=== PATIENT | female | born 1935 | race Caucasian/White ===

== ENCOUNTER 2021-06-20 17:06 | Emergency (ER) | payer OTHER ==
[~2021-06-20] VITALS: Ht 162.6 cm; Wt 77.1 kg
[2021-06-20] MEDS ORDERED: LIDOCAINE 1% (LOCAL ANESTH.) PF 5ml SDV ID ONE (17:30)
[2021-06-20] MEDS ORDERED: NEOMYCIN-BACITRACIN-POLYM UNITDOSE PKG TOP OINT TOP ONE (17:30)
[2021-06-20] MEDS ORDERED: LIDOCAINE 1%HCL (LOCAL ANESTH) 10 ML MDV XX ONE (19:30)
[2021-06-20 20:36] VITALS: BP 161/85
[2021-06-20] MEDS ORDERED: HYDROcodone-ACET 5/325MG TAB PO ONE (20:45)
[2021-06-20] MEDS ORDERED: AZIT1POW PO (20:53)
== END 2021-06-20 20:59 | disposition home or self-care (01) ==
LOC: ER 17:06
DX: S01.81XA Laceration without foreign body of other part of head, initial encounter (principal); S01.511A Laceration without foreign body of lip, initial encounter; S66.912A Strain of unspecified muscle, fascia and tendon at wrist and hand level, left hand, initial encounter; S66.911A Strain of unspecified muscle, fascia and tendon at wrist and hand level, right hand, initial encounter; E11.9 Type 2 diabetes mellitus without complications; F17.210 Nicotine dependence, cigarettes, uncomplicated; Z88.8 Allergy status to other drugs, medicaments and biological substances; W01.0XXA Fall on same level from slipping, tripping and stumbling without subsequent striking against object, initial encounter; Y93.89 Activity, other specified; Y92.89 Other specified places as the place of occurrence of the external cause; Y99.8 Other external cause status
CPT/HCPCS: 12015; 70450; 70486; 71250; 73100; 99284; J2001; 12014

== ENCOUNTER 2022-12-13 12:55 | Inpatient (IN) | payer OTHER ==
[2022-12-13] VITALS (18 sets, daily range): BP systolic 116–193; BP diastolic 53–81; PULSE 49–87; RESP 19–26; TEMP 98.8–99.3; O2SAT 92–100
[~2022-12-13] VITALS: Ht 167.6 cm; Wt 88.5 kg
[~2022-12-13 12:55] MED LIST: AZIT1POW PO
[2022-12-13] MEDS ORDERED: SODIUM CHLORIDE 0.9% 500 ML IVB ONE (13:00)
[2022-12-13 13:42] LABS: Base Excess 8.4 mmol/L (-2.0-2.0)
[2022-12-13 14:31] LABS: Urine Bacteria FEW /hpf (None Seen); Urine Blood Negative /uL (Negative); Urine Clarity HAZY (Clear); Urine Color Yellow (Yellow); Urine Mucus FEW (None Seen); Urine Protein, UAD 1+ (Negative); Urine Specific Gravity 1.025 (1.001-1.035); Urine WBC 3 /hpf (0 - 5)
[2022-12-13 14:49] LABS: Hemoglobin 10.6 g/dL (12.2-16.2)
[2022-12-13 14:49] LABS: Amphetamine Screen, Urine Neg (NEGATIVE); Barbiturate Scree,Urine Neg (NEGATIVE); Benzodiazephine Screen, Urine Pos (NEGATIVE); Cannabinoid Screen, Urine Neg (NEGATIVE); Cocaine Screen, Urine Neg (NEGATIVE); Opiate Scree,Urine Neg (NEGATIVE); Phencyclidine Screen, Urine Neg (NEGATIVE)
[2022-12-13 14:51] LABS: Hematocrit 34.3 % (36.0-46.0); Mean Corpuscular Hemoglobin 30.9 pg (28.0-32.0); Mean Corpuscular Volume 99.7 fL (80.0-100.0); Red Blood Cells 3.44 10^6/uL (4.0-5.20); Red Cell Distribution Width 15.9 % (11.8-14.3); White Blood Cell 6.2 10^3/uL (4.4-10.8)
[2022-12-13 14:54] LABS: Alanine Aminotransferase 82 U/L (7-40); Albumin 3.8 g/dL (3.2-4.8); Alkaline Phosphatase 75 U/L (46-116); Aspartate Aminotransferase 99 U/L (13-40); BUN/Creatinine Ratio 22.6 (10.0-20.0); Bilirubin, Total 0.3 mg/dL (0.2-1.0); Blood Alcohol < 3.0 mg/dL (<10); Blood Urea Nitrogen 21 mg/dL (9-23); Calcium 8.9 mg/dL (8.5-10.1); Chloride 105 mmol/L (98-107); Glucose 172 mg/dL (74-106); Potassium 4.1 mmol/L (3.5-5.1); Sodium 147 mmol/L (136-145); Total Protein 6.4 g/dL (5.7-8.2)
[2022-12-13 14:56] LABS: Anion Gap 1.99999 (5-15)
[2022-12-13 14:58] LABS: Basophils % (manual) 0 (0.0-2.0); Blast Cells 0; Eosinophils % (manual) 0 (0-7); Metamyelocytes % 0; Myelocytes % 0; Promyelocytes % 0; Reactive Lymphocytes 0
[2022-12-13 15:00] LABS: Carbon Dioxide > 40 mmol/L (20-30)
[2022-12-13 15:03] LABS: CRP High Sensitivity 2.03 mg/dL (<1.0)
[2022-12-13 15:05] LABS: INR 1.08 (0.9-1.15); Partial Thromboplastin Time 24.9 SEC (24.5-34.5); Prothrombin Time 11.3 sec (9.3-11.8)
[2022-12-13 15:10] LABS: Magnesium 2.2 mg/dL (1.6-2.6)
[2022-12-13 15:33] LABS: Base Excess 7.8 mmol/L (-2.0-2.0)
[2022-12-13] MEDS ORDERED: NITROGLYCERIN 0.4 MG SL TAB SL PRN (15:45)
[2022-12-13] MEDS ORDERED: MORPHINE SULFATE INJ 2 MG/ml SYRG IV PRN ×2 (15:45)
[2022-12-13] MEDS ORDERED: cefTRIAXone 1GM/50ML D5W 50 ML IV ONE (15:45)
[2022-12-13] MEDS ORDERED: ACETAMINOPHEN 325 MG TAB PO PRN (15:45)
[2022-12-13] MEDS ORDERED: SUCCINYLCHOLINE CHLORIDE 20 MG/ML 10ML VIAL IV ONE ×3 (15:45→18:00)
[2022-12-13] MEDS ORDERED: levoFLOXacin 500MG 100 ML IV ONE (15:45)
[2022-12-13] MEDS ORDERED: ETOMIDATE (2MG/ML) 20ML VIAL IV ONE (15:45)
[2022-12-13] MEDS ORDERED: HYDROcodone-ACET 5/325MG TAB PO PRN (15:45)
[2022-12-13 15:46] LABS: Anisocytosis Slight; Band Neutrophils % (manual) 4; Lymphocytes % (manual) 10 (10.0-50.0); Monocytes % (manual) 8 (0-12); Platelet Estimate Adequate
[2022-12-13] MEDS ORDERED: MIDAZOLAM DRIP 50 mg/50mL 50 ML IV SCH (16:15)
[2022-12-13] MEDS ORDERED: MIDAZOLAM DRIP 50 mg/50mL 50 ML IV ONE (16:15)
[2022-12-13] MEDS: MIDAZOLAM DRIP 50 mg/50mL 50 ML IV SCH ×3 (16:29→23:06)
[2022-12-13] MEDS ORDERED: methylPREDNISolone SOD SUCC 40 MG/ML VL IM ONE (16:30)
[2022-12-13] MEDS: ENOXAPARIN SOD 40 MG/0.4 ML SYRINGE SC SCH (16:50)
[2022-12-13 17:36] LABS: Base Excess 13.6 mmol/L (-2.0-2.0)
[2022-12-13 18:10] LABS: COVID19 ANTIGEN SOFIA FIA NEGATIVE (NEGATIVE); Rapid Influenza A Negative (Negative); Rapid Influenza B Negative (Negative)
[2022-12-13] MEDS ORDERED: PROPOFOL 100 ML IV ONE (18:12)
[2022-12-13] MEDS: PROPOFOL 100 ML IV SCH ×3 (18:15→23:07)
[2022-12-13] MEDS: methylPREDNISolone SOD SUCC 40 MG/ML VL IV SCH (21:55)
[2022-12-13] MEDS: PIPERACILLIN-TAZOB 3.375GM 100 ML IV SCH (21:55)
[2022-12-13] MEDS: hydrALAZINE HCL 20 MG/ML VL IV PRN (22:51)
[2022-12-13] MEDS ORDERED: ATOR20TA50 PO (23:28)
[2022-12-13] MEDS ORDERED: GAB100C PO (23:28)
[2022-12-13] MEDS ORDERED: POTA-228 PO (23:28)
[2022-12-13] MEDS ORDERED: ALPR0.255 PO (23:28)
[2022-12-13] MEDS ORDERED: RISP1TAB63 PO (23:28)
[2022-12-13] MEDS ORDERED: LOSA50TA46 PO (23:28)
[2022-12-13] MEDS ORDERED: METF-370 PO (23:28)
[2022-12-13] MEDS ORDERED: SERT-206 PO (23:28)
[2022-12-13] MEDS ORDERED: FURO40TA4 PO (23:28)
[2022-12-14] VITALS (107 sets, daily range): BP systolic 107–176; BP diastolic 42–73; PULSE 42–82; RESP 12–33; TEMP 98.4–99.1; O2SAT 93–100
[2022-12-14] MEDS: hydrALAZINE HCL 20 MG/ML VL IV PRN (03:42)
[2022-12-14 03:43] LABS: Basophils # (auto) 0 10 ^3/uL (0-0.2); Basophils % (auto) 0.1 % (0.0-2.0); Eosinophils # (auto) 0 10 ^3/uL (0-0.8); Eosinophils % (auto) 0.3 % (0.0-7.0); Hematocrit 34.1 % (36.0-46.0); Hemoglobin 10.8 g/dL (12.2-16.2); Lymphocytes # (auto) 0.7 10 ^3/uL (0.4-5.4); Lymphocytes % (auto) 10.6 % (10.0-50.0); Mean Corpuscular Hemoglobin 30.6 pg (28.0-32.0); Mean Corpuscular Hgb Conc. 31.7 g/dL (32.0-36.0); Mean Corpuscular Volume 96.4 fL (80.0-100.0); Monocytes # (auto) 0.2 10 ^3/uL (0-1.3); Monocytes % (auto) 2.9 % (0.0-12.0); Neutrophils # (auto) 5.5 10 ^3/uL (1.6-8.6); Neutrophils % (auto) 86.1 % (37.0-80.0); Nucleated Red Blood Cells % 0.1 %; Red Blood Cells 3.53 10^6/uL (4.0-5.20); Red Cell Distribution Width 15.3 % (11.8-14.3); White Blood Cell 6.4 10^3/uL (4.4-10.8)
[2022-12-14 04:00] LABS: Alanine Aminotransferase 62 U/L (7-40); Anion Gap 8 (5-15); Aspartate Aminotransferase 62 U/L (13-40); BUN/Creatinine Ratio 23.9 (10.0-20.0); Blood Urea Nitrogen 22 mg/dL (9-23); Calcium 8.9 mg/dL (8.7-10.4); Carbon Dioxide 31 mmol/L (20-30); Chloride 103 mmol/L (98-107); Glucose 148 mg/dL (74-106); Potassium 3.6 mmol/L (3.5-5.1); Sodium 142 mmol/L (136-145)
[2022-12-14 04:01] LABS: Albumin 3.6 g/dL (3.2-4.8)
[2022-12-14 04:02] LABS: Bilirubin, Total 0.7 mg/dL (0.2-1.0); Total Protein 6.2 g/dL (5.7-8.2)
[2022-12-14 04:36] LABS: Alkaline Phosphatase 83 U/L (46-116)
[2022-12-14] MEDS: PIPERACILLIN-TAZOB 3.375GM 100 ML IV SCH ×3 (05:32→21:09)
[2022-12-14 07:21] LABS: Base Excess 8.8 mmol/L (-2.0-2.0)
[2022-12-14] MEDS ORDERED: NALOXONE HCL 0.4 MG/ML VIAL ONE (08:18)
[2022-12-14] MEDS ORDERED: LIDOCAINE 2%HCL (LOCAL ANESTH.) INJ 20ML MDV ONE (08:18)
[2022-12-14] MEDS ORDERED: FLUMAZENIL 0.1 MG/ML INJ 10ML MDV IV ONE (08:18)
[2022-12-14] MEDS ORDERED: SODIUM CHLORIDE LOCK 0 ML ONE (08:18)
[2022-12-14] MEDS ORDERED: LIDOCAINE 2% JELLY 11ml (GLYDO) ONE (08:18)
[2022-12-14] MEDS ORDERED: fentaNYL CITRATE 100 MCG/2 ML VL ONE (08:19)
[2022-12-14] MEDS ORDERED: EPINEPHrine HCL 1 MG/1 ML AMP ONE (08:19)
[2022-12-14] MEDS ORDERED: MIDAZOLAM HCL 5 MG/ML-1ML VIAL ONE (08:19)
[2022-12-14] MEDS ORDERED: GLYCOPYRROLATE 0.2 MG/ML 1ML VIAL ONE (08:19)
[2022-12-14] MEDS: PROPOFOL 100 ML IV SCH (08:57)
[2022-12-14] MEDS: ENOXAPARIN SOD 40 MG/0.4 ML SYRINGE SC SCH (09:51)
[2022-12-14] MEDS: methylPREDNISolone SOD SUCC 40 MG/ML VL IV SCH ×2 (09:51→21:10)
[2022-12-14] MEDS: AZITHROMYCIN 500MG/ 250ML 250 ML IV SCH (09:51)
[2022-12-14] MEDS ORDERED: levoFLOXacin 500MG 100 ML IV SCH (10:00)
[2022-12-14] MEDS: MIDAZOLAM DRIP 50 mg/50mL 50 ML IV SCH ×3 (10:03→21:10)
[2022-12-15] VITALS (107 sets, daily range): BP systolic 106–185; BP diastolic 37–129; PULSE 48–123; RESP 12–48; TEMP 97.5–99; O2SAT 90–100
[2022-12-15] MEDS: hydrALAZINE HCL 20 MG/ML VL IV PRN ×3 (00:02→22:33)
[2022-12-15] MEDS: PROPOFOL 100 ML IV SCH (00:36)
[2022-12-15] MEDS: PIPERACILLIN-TAZOB 3.375GM 100 ML IV SCH (05:10)
[2022-12-15 07:49] LABS: Base Excess 6.4 mmol/L (-2.0-2.0)
[2022-12-15] MEDS: methylPREDNISolone SOD SUCC 40 MG/ML VL IV SCH ×2 (09:45→21:52)
[2022-12-15] MEDS: ENOXAPARIN SOD 40 MG/0.4 ML SYRINGE SC SCH (09:45)
[2022-12-15] MEDS: AZITHROMYCIN 500MG/ 250ML 250 ML IV SCH (09:45)
[2022-12-15] MEDS ORDERED: FUROSEMIDE 20 MG/2 ML VIAL IV ONE (11:30)
[2022-12-15] MEDS: IPRATROPIUM BROM 0.5 MG/2.5ML INH SOL NEB SCH ×2 (12:49→18:03)
[2022-12-15] MEDS: ALBUTEROL SULF 2.5 MG/0.5ML(0.5%) NEB SOLN NEB SCH ×2 (12:49→18:03)
[2022-12-16] VITALS (107 sets, daily range): BP systolic 94–182; BP diastolic 39–128; PULSE 40–88; RESP 15–44; TEMP 97.3–99; O2SAT 62–99
[2022-12-16] MEDS: ALBUTEROL SULF 2.5 MG/0.5ML(0.5%) NEB SOLN NEB SCH ×4 (00:26→18:28)
[2022-12-16] MEDS: IPRATROPIUM BROM 0.5 MG/2.5ML INH SOL NEB SCH ×4 (00:27→18:29)
[2022-12-16 04:14] LABS: Basophils # (auto) 0 10 ^3/uL (0-0.2); Basophils % (auto) 0.1 % (0.0-2.0); Eosinophils # (auto) 0 10 ^3/uL (0-0.8); Hematocrit 34.8 % (36.0-46.0); Hemoglobin 11.2 g/dL (12.2-16.2); Lymphocytes # (auto) 0.4 10 ^3/uL (0.4-5.4); Lymphocytes % (auto) 5.8 % (10.0-50.0); Mean Corpuscular Hemoglobin 29.9 pg (28.0-32.0); Mean Corpuscular Hgb Conc. 32.2 g/dL (32.0-36.0); Mean Corpuscular Volume 93.1 fL (80.0-100.0); Monocytes # (auto) 0.4 10 ^3/uL (0-1.3); Monocytes % (auto) 5.4 % (0.0-12.0); Neutrophils # (auto) 6.4 10 ^3/uL (1.6-8.6); Neutrophils % (auto) 88.7 % (37.0-80.0); Nucleated Red Blood Cells % 0.1 %; Red Blood Cells 3.74 10^6/uL (4.0-5.20); Red Cell Distribution Width 15.9 % (11.8-14.3); White Blood Cell 7.3 10^3/uL (4.4-10.8)
[2022-12-16 04:22] LABS: Chloride 101 mmol/L (98-107); Potassium 3.2 mmol/L (3.5-5.1); Sodium 140 mmol/L (136-145)
[2022-12-16 04:23] LABS: Anion Gap 8 (5-15); Calcium 8.8 mg/dL (8.7-10.4); Carbon Dioxide 31 mmol/L (20-30)
[2022-12-16 04:28] LABS: BUN/Creatinine Ratio 26.2 (10.0-20.0); Blood Urea Nitrogen 27 mg/dL (9-23); Glucose 196 mg/dL (74-106)
[2022-12-16] MEDS: hydrALAZINE HCL 20 MG/ML VL IV PRN ×2 (05:19→13:33)
[2022-12-16 06:57] LABS: Base Excess 6.1 mmol/L (-2.0-2.0)
[2022-12-16] MEDS ORDERED: LORazepam 2MG/ML-1ML VIAL IV ONE (10:15)
[2022-12-16] MEDS: ENOXAPARIN SOD 40 MG/0.4 ML SYRINGE SC SCH (10:24)
[2022-12-16] MEDS: FUROSEMIDE 20 MG/2 ML VIAL IV SCH (10:24)
[2022-12-16] MEDS: methylPREDNISolone SOD SUCC 40 MG/ML VL IV SCH ×2 (10:25→21:50)
[2022-12-16] MEDS: CEFTRIAXONE SODIUM 2 GM in D5W 5% 100 ML IV SCH (10:25)
[2022-12-16 10:50] LABS: Base Excess 5.4 mmol/L (-2.0-2.0)
[2022-12-16] MEDS: POTASSIUM CHL 20MEQ/100ML 100 ML IV SCH ×2 (13:18→15:46)
[2022-12-16] MEDS: fentaNYL Drip 2500mCg/250mlNS 250 ML IV SCH (15:30)
[2022-12-16] MEDS ORDERED: fentaNYL Drip 2500mCg/250mlNS 250 ML IV ONE (15:44)
[2022-12-16] MEDS: MIDAZOLAM DRIP 50 mg/50mL 50 ML IV SCH (16:30)
[2022-12-16] MEDS: PROPOFOL 100 ML IV SCH (16:38)
[2022-12-17] VITALS (86 sets, daily range): BP systolic 94–187; BP diastolic 35–99; PULSE 51–120; RESP 12–30; TEMP 98.3–99.1; O2SAT 91–99
[2022-12-17] MEDS: PROPOFOL 100 ML IV SCH (00:28)
[2022-12-17] MEDS: IPRATROPIUM BROM 0.5 MG/2.5ML INH SOL NEB SCH ×4 (00:29→18:04)
[2022-12-17] MEDS: ALBUTEROL SULF 2.5 MG/0.5ML(0.5%) NEB SOLN NEB SCH ×4 (00:29→18:04)
[2022-12-17] MEDS: CEFTRIAXONE SODIUM 2 GM in D5W 5% 100 ML IV SCH (09:19)
[2022-12-17] MEDS: methylPREDNISolone SOD SUCC 40 MG/ML VL IV SCH ×2 (09:20→21:39)
[2022-12-17] MEDS: FUROSEMIDE 20 MG/2 ML VIAL IV SCH (09:20)
[2022-12-17] MEDS: ENOXAPARIN SOD 40 MG/0.4 ML SYRINGE SC SCH (09:21)
[2022-12-17 09:30] LABS: Base Excess 3.1 mmol/L (-2.0-2.0)
[2022-12-17] MEDS: fentaNYL Drip 2500mCg/250mlNS 250 ML IV SCH (15:30)
[2022-12-17] MEDS: MIDAZOLAM DRIP 50 mg/50mL 50 ML IV SCH (16:30)
[2022-12-17] MEDS: ALPRAZolam 0.25 MG TAB PO PRN (21:39)
[2022-12-18] VITALS (39 sets, daily range): BP systolic 126–179; BP diastolic 45–79; PULSE 56–122; RESP 10–34; TEMP 98.1–98.8; O2SAT 90–100
[2022-12-18] MEDS: IPRATROPIUM BROM 0.5 MG/2.5ML INH SOL NEB SCH ×4 (00:04→19:04)
[2022-12-18] MEDS: ALBUTEROL SULF 2.5 MG/0.5ML(0.5%) NEB SOLN NEB SCH ×4 (00:04→19:05)
[2022-12-18] MEDS: hydrALAZINE HCL 20 MG/ML VL IV PRN (00:23)
[2022-12-18] MEDS: CEFTRIAXONE SODIUM 2 GM in D5W 5% 100 ML IV SCH (09:02)
[2022-12-18] MEDS: ENOXAPARIN SOD 40 MG/0.4 ML SYRINGE SC SCH (09:03)
[2022-12-18] MEDS: methylPREDNISolone SOD SUCC 40 MG/ML VL IV SCH ×2 (09:03→22:30)
[2022-12-18] MEDS: FUROSEMIDE 20 MG/2 ML VIAL IV SCH (09:03)
[2022-12-18] MEDS ORDERED: ALPRAZolam 0.25 MG TAB PO ONE (12:45)
[2022-12-18] MEDS: fentaNYL Drip 2500mCg/250mlNS 250 ML IV SCH (15:30)
[2022-12-19] VITALS (12 sets, daily range): BP systolic 118–174; BP diastolic 49–86; PULSE 68–106; RESP 14–18; TEMP 97.9–98.3; O2SAT 88–98
[2022-12-19] MEDS: ALPRAZolam 0.25 MG TAB PO PRN ×2 (00:22→13:18)
[2022-12-19] MEDS: ALBUTEROL SULF 2.5 MG/0.5ML(0.5%) NEB SOLN NEB SCH ×3 (00:28→10:59)
[2022-12-19] MEDS: IPRATROPIUM BROM 0.5 MG/2.5ML INH SOL NEB SCH ×3 (00:28→10:59)
[2022-12-19] MEDS: hydrALAZINE HCL 20 MG/ML VL IV PRN (05:30)
[2022-12-19] MEDS: FUROSEMIDE 20 MG/2 ML VIAL IV SCH (10:13)
[2022-12-19] MEDS: ENOXAPARIN SOD 40 MG/0.4 ML SYRINGE SC SCH (10:15)
[2022-12-19] MEDS: methylPREDNISolone SOD SUCC 40 MG/ML VL IV SCH (10:15)
[2022-12-19] MEDS: CEFTRIAXONE SODIUM 2 GM in D5W 5% 100 ML IV SCH (13:18)
[2022-12-19] MEDS ORDERED: METH4PAK PO (14:49)
[2022-12-19] MEDS ORDERED: LEVO500T91 PO (14:49)
== END 2022-12-19 19:26 | disposition home health service (06) | DRG 871 ==
LOC: EDBD 12:55 → ER 12:55 → TELE 15:41 → ICU WEST 21:26 → TELE-WESTW 12-18 16:23
PROVIDERS: ADMIT Internal Medicine; ATTEND Internal Medicine
PROC: 5A1945Z Respiratory Ventilation, 24-96 Consecutive Hours (ICD-10-PCS; principal; 2022-12-13)
PROC: 0BH17EZ Insertion of Endotracheal Airway into Trachea, Via Natural or Artificial Opening (ICD-10-PCS; 2022-12-13)
PROC: 5A09357 Assistance with Respiratory Ventilation, Less than 24 Consecutive Hours, Continuous Positive Airway Pressure (ICD-10-PCS; 2022-12-13)
PROC: 06HY33Z Insertion of Infusion Device into Lower Vein, Percutaneous Approach (ICD-10-PCS; 2022-12-13)
PROC: 0B9B8ZZ Drainage of Left Lower Lobe Bronchus, Via Natural or Artificial Opening Endoscopic (ICD-10-PCS; 2022-12-14)
PROC: 0B968ZZ Drainage of Right Lower Lobe Bronchus, Via Natural or Artificial Opening Endoscopic (ICD-10-PCS; 2022-12-14)
PROC: 0BD68ZX Extraction of Right Lower Lobe Bronchus, Via Natural or Artificial Opening Endoscopic, Diagnostic (ICD-10-PCS; 2022-12-14)
DX: A40.9 Streptococcal sepsis, unspecified (principal); G93.41 Metabolic encephalopathy; J18.9 Pneumonia, unspecified organism; J96.01 Acute respiratory failure with hypoxia; J96.02 Acute respiratory failure with hypercapnia; J44.1 Chronic obstructive pulmonary disease with (acute) exacerbation; J98.19 Other pulmonary collapse; J44.0 Chronic obstructive pulmonary disease with (acute) lower respiratory infection; E66.01 Morbid (severe) obesity due to excess calories; I11.0 Hypertensive heart disease with heart failure; I25.10 Atherosclerotic heart disease of native coronary artery without angina pectoris; F17.210 Nicotine dependence, cigarettes, uncomplicated; W18.39XA Other fall on same level, initial encounter; I50.9 Heart failure, unspecified; S09.90XA Unspecified injury of head, initial encounter; Z88.8 Allergy status to other drugs, medicaments and biological substances; Z68.31 Body mass index [BMI] 31.0-31.9, adult; Y93.89 Activity, other specified; Y92.89 Other specified places as the place of occurrence of the external cause; Y99.8 Other external cause status
CPT/HCPCS: 31500; 36415; 36556; 36600; 70450; 71045; 71250; 72125; 74176; 76604; 80048; 80053; 80307; 80320; 81001; 82805; 82962; 83605; 83735; 83880; 84484; 85007; 85025; 85027; 85610; 85730; 86141; 86850; 86900; 86901; 87040; 87070; 87077; 87081; 87086; 87186; 87205; 87426; 87804; 93005; 93306; 94002; 94003; 94640; 94660; 96361; 96365; 96372; 97110; 97116; 97163; 99291; 99292; G0378; J0171; J0330; J0696; J1956; J2250; J2543; J2704; J3480; J7060